=== PATIENT | male | born 1980 | race Caucasian/White ===

== ENCOUNTER 2020-01-27 08:01 | Emergency (ER) | payer OTHER, SELFPAY ==
--- NOTE | 2020-01-27 08:08 | ED.GENADULT ---
HPI - General Adult General Chief complaint: Extremity Problem,Nontraumatic Stated complaint: left hip pain Time Seen by Provider: 01/27/20 08:16 Source: patient Mode of arrival: ambulatory Limitations: no limitations History of Present Illness HPI narrative: 39-year-old male [facility] complaints of left hip pain for the past 3 days. 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 Patient states he is really had increasing pain over the last 3 days to the point where it hurts to walk. Patient states there is a certain point that he can push right along the left hip/buttock area that is painful. Patient states he has been trying to take ibuprofen, 600 mg as well as 2 extra strength Tylenol for the pain. Patient denies any heating pads, ice past. Patient denies any numbness or tingling down the legs. Patient denies any injury that he is aware of. Patient denies any loss of bowel or bladder control. Related Data Allergies Allergy/AdvReac Type Severity Reaction Status Date / Time No Known Allergies Allergy Verified 01/27/20 08:16 Review of Systems Review of Systems: Narrative: CONSTITUTIONAL: Denies fever, chills, or sweats. EYES: Denies visual changes, redness, or discharge. ENT: Denies rhinorrhea, congestion, sore throat, or otalgia. CARDIOVASCULAR: Denies chest pain, palpitations, or edema. RESPIRATORY: Denies cough or dyspnea. GASTROINTESTINAL: Denies abdominal pain, nausea, vomiting, or diarrhea. GENITOURINARY: Denies dysuria or hematuria. SKIN: Denies rash or itching. MUSCULOSKELETAL: Denies back pain, joint pain, or myalgia. Positive left hip pain x3 days NEUROLOGIC: Denies headache, numbness, or weakness. PSYCHIATRIC: Denies anxiety or depression. [facility] Past Medical History Medical History Asthma Cyst epidermoid cyst on left side of neck 12/10/2016 Inguinal hernia left - 12/2014 Insomnia Surgical History Surgical History History of arthroplasty finger joint - 2012 History of removal of cyst off neck 12/24/2016 Family History Family History Other Asthma Social History Social History Smoking packs per day: 1 Smoking cigarettes per day: 20.0 Smoking status: Current every day smoker Tobacco type: cigarettes Second hand tobacco smoke exposure: No Alcohol intake: current Substance use: former Substance use type: marijuana Gender identity (if verbalized by the patient): Male Comments At the time of my signature I agree with nursing past medical history, surgical, social, and family history. There is no relevant family history pertinent to the presenting complaint. Exam Narrative: Exam Narrative: GENERAL: Well-appearing, well-nourished, and in no acute distress. HEAD: Normocephalic, atraumatic. EYES: PERRLA and EOMI. ENT: Nares clear, no rhinorrhea or epistaxis. Mucous membranes moist. NECK: Supple. No lymphadenopathy CHEST: Clear to auscultation. No respiratory distress. HEART: Regular rate and rhythm. No murmur heard. Normal peripheral pulses. ABDOMEN: Soft, nontender, nondistended, normal active bowel sounds. EXTREMITIES: Patient is able to ambulate to treatment area without difficulty patient does complain of pain and does have a slight limp when walking. No surface trauma, ecchymosis. no erythema, warmth. No deformity or crepitus or obvious asymmetry of the affected leg compared to the other. No tenderness to palpation over symphysis pubis, ischial bone,iliac crest, trochanter, SI notch, buttocks, quadriceps, femoral triangle, inguinal ligament. Patient does have pain on palpation right around the sciatic nerve area on the left buttocks over to the left hip. No
[2020-01-27 08:12] VITALS: BP 129/87; PULSE 97; RESP 16; TEMP 37; O2SAT 96
== END 2020-01-27 08:30 | disposition home or self-care (01) ==
PROVIDERS: Emergency Provider Nurse Practitioner Family
DX: M54.32 Sciatica, left side (principal); M25.552 Pain in left hip; J45.909 Unspecified asthma, uncomplicated; F17.210 Nicotine dependence, cigarettes, uncomplicated
CPT/HCPCS: 99213; G0463

== ENCOUNTER 2023-12-14 06:49 | Emergency (ER) | payer OTHER, SELFPAY ==
--- NOTE | ~2023-12-14 | XR_ITS ---
EXAMINATION: XR chest 1V portable DATE: 12/14/2023 07:57 INDICATION: Cough. TECHNIQUE: A single frontal view of the chest was obtained. COMPARISON: None. FINDINGS: A calcified right lung nodule is consistent with old granulomatous disease. No pleural effu chavo or pneumothorax. The heart size is normal. IMPRESSION: 1. No acute cardiopulmonary disease. Reviewed, dictated and finalized at location A.
[2023-12-14 06:54] VITALS: BP 160/106; PULSE 96; RESP 20; TEMP 36.9; O2SAT 92
[2023-12-14 06:58] VITALS: O2SAT 95
--- NOTE | 2023-12-14 07:20 | ED.GENADULT ---
HPI - General Adult General Chief complaint: Upper Respiratory Infection Stated complaint: URI x 2 months Time Seen by Provider: 12/14/23 06:55 History of Present Illness HPI narrative: [age] old male presenting to the emergency department for evaluation of cough and congestion. this been going on for approximately 1 month. Patient is a smoker but states he has not been smoking much as of recently. Upon arrival to the emergency department patient has stable vital signs. Patient does admit to daily alcohol consumption. Related Data Allergies Allergy/AdvReac Type Severity Reaction Status Date / Time No Known Allergies Allergy Verified 12/14/23 06:51 Review of Systems Review of Systems: All systems reviewed & are unremarkable except as noted in HPI and below Exam Narrative: APPEARANCE: Well appearing, no pain, no distress, well-nourished. HEAD: normocephalic, atraumatic. EYES: PERRLA/EOMI, conjunctivae clear. NOSE: Normal no drainage EARS:TMS clear with good light reflex. THROAT: Pharynx clear, no exudate. NECK: Supple. No adenopathy, no masses. RESPIRATORY: Wheeze bilaterally CARDIOVASCULAR: Regular rate and rhythm without murmurs rubs or gallops. ABDOMINAL: Soft, nontender, nondistended, normal bowel sounds MUSCULOSKELETAL: Moves all extremities. Strength/ROM intact, No edema, No calf tenderness. NEURO: Alert. Cranial nerves II through XII intact. Grossly intact SKIN: Warm, dry. Normal Color Course Vital Signs Vital signs: Vital Signs Temperature 98.4 F 12/14/23 06:54 Pulse Rate 96 12/14/23 06:54 Respiratory Rate 20 12/14/23 06:54 Blood Pressure 160/106 H 12/14/23 06:54 Pulse Oximetry 92 12/14/23 06:54 Oxygen Delivery Room Air 12/14/23 06:54 Temperature 98.4 F 12/14/23 06:54 Pulse Rate 76 12/14/23 07:45 Respiratory Rate 20 12/14/23 07:45 Blood Pressure 160/106 H 12/14/23 06:54 Pulse Oximetry 95 12/14/23 06:58 Oxygen Delivery Room Air 12/14/23 06:[address] [facility] Narrative Medical decision making narrative: [age] old male presenting emergency department for evaluation of cough wheezing and shortness of breath. Wheeze was resolved with an albuterol treatment. Patient is afebrile with no leukocytosis and a stable hemoglobin no acute abnormalities on the patient's CMP patient was negative for influenza RSV and for COVID. Due to the duration of the patient's illness he will be started on antibiotics, provided albuterol inhaler. Differential Diagnosis Differential Diagnosis: Pneumonia, COPD, influenza, RSV, COVID Vital Signs Vital Signs: Vital Signs Temperature 98.4 F 12/14/23 06:54 Pulse Rate 96 12/14/23 06:54 Respiratory Rate 20 12/14/23 06:54 Blood Pressure 160/106 H 12/14/23 06:54 Pulse Oximetry 92 12/14/23 06:54 Oxygen Delivery Room Air 12/14/23 06:54 Temperature 98.4 F 12/14/23 06:54 Pulse Rate 76 12/14/23 07:45 Respiratory Rate 20 12/14/23 07:45 Blood Pressure 160/106 H 12/14/23 06:54 Pulse Oximetry 95 12/14/23 06:58 Oxygen Delivery Room Air 12/14/23 06:58 Lab Data 12/14/23 07:23 12/14/23 07:24 Labs: Lab Results 12/14/23 12/14/23 12/14/23 Range/Units 07:23 07:24 07:37 WBC 7.8 (4.5-10.0) K/mm3 RBC 5.69 (4.6-6.20) M/mm3 Hgb 18.4 H (14.0-18.0) g/dL Hct 53.7 H (42.0-52.0) % MCV 94.4 (80-100) fl MCH 32.3 (26-34) pg MCHC 34.3 (32-36) g/dl RDW 13.0 (11.5-14.5) % Plt Count 196 (150-375) k/mm3 MPV 9.8 (7.4-10.4) fl Immature Gran % (Auto) 0.4 (0-0.5) % Neut % (Auto) 53.2 (45.5-73.1) % Lymph % (Auto) 26.5 (18.3-44.2) % Nye % (Auto) 7.3 (2.6-8.5) % Eos % (Auto) 10.9 H (0-4.4) % Baso % (Auto) 1.7 H (0.2-1.2) % Lymph # (Auto) 2.06 (0.9-3.2) K/mm3 Nye # (Auto) 0.6 (0.1-0.6) K/mm3 Eos # (Auto) 0.9 H (0-0.3) K/mm3 Baso # (Auto) 0.1 (0.0-0.1) K/mm3
[2023-12-14 07:31] LABS: Basophils Absolute Auto 0.1 K/mm3 (0.0-0.1); Basophils Percent Auto 1.7 % (0.2-1.2); Eosinophils Absolute Auto 0.9 K/mm3 (0-0.3); Eosinophils Percent Auto 10.9 % (0-4.4); Hematocrit 53.7 % (42.0-52.0); Hemoglobin 18.4 g/dL (14.0-18.0); Immature Granulocyte Absolute 0.03 K/mm3 (0.00-0.031); Immature Granulocyte Percent A 0.4 % (0-0.5); Lymphocytes Absolute Auto 2.06 K/mm3 (0.9-3.2); Lymphocytes Percent Auto 26.5 % (18.3-44.2); Mean Corpuscular HGB Conc 34.3 g/dl (32-36); Mean Corpuscular Hemoglobin 32.3 pg (26-34); Mean Corpuscular Volume 94.4 fl (80-100); Mean Platelet Volume 9.8 fl (7.4-10.4); Monocytes Absolute Auto 0.6 K/mm3 (0.1-0.6); Monocytes Percent Auto 7.3 % (2.6-8.5); Neutrophils Absolute Auto 4.1 K/mm3 (1.3-6.7); Neutrophils Percent Auto 53.2 % (45.5-73.1); Platelet Count Result 196 k/mm3 (150-375); Red Blood Count 5.69 M/mm3 (4.6-6.20); White Blood Count 7.8 K/mm3 (4.5-10.0)
[2023-12-14 07:35] VITALS: PULSE 88; RESP 20
[2023-12-14] MEDS: ALBUTEROL SULFATE NEB 2.5 MG/3 ML INH INHALATION (07:35)
[2023-12-14 07:40] LABS: Ethanol < 10 mg/dL (<10)
[2023-12-14 07:45] VITALS: PULSE 76; RESP 20
[2023-12-14 07:57] LABS: Alanine Aminotransferase 27 U/L (6-50); Albumin Level 4.7 g/dL (3.5-5.1); Alkaline Phosphatase 71 U/L (38-126); Anion Gap 6 mmol/L (4-12); Aspartate Amino Transferase 31 U/L (17-59); Bilirubin,Total 1.1 mg/dL (0.2-1.3); Blood Urea Nitrogen 16 mg/dL (9-20); Calcium 9.8 mg/dL (8.4-10.2); Carbon Dioxide 32 mmol/L (22-30); Chloride 101 mmol/L (98-107); Estimated CRCL calculation 127 ml/min; Estimated Glomerular Filt Rate > 60; Glucose 99 mg/dL (65-110); Sodium 139 mmol/L (137-145)
[2023-12-14 08:20] LABS: Influenza A QL RT-PCR Negative (Negative); Influenza B QL RT-PCR Negative (Negative); RSV RNA, RT-PCR Negative (Negative); SARS-CoV-2 RNA PCR Negative (Negative)
== END 2023-12-14 10:15 | disposition home or self-care (01) ==
PROVIDERS: Emergency Provider Emergency Medicine
DX: J18.9 Pneumonia, unspecified organism (principal); Z20.822 Contact with and (suspected) exposure to COVID-19; F17.210 Nicotine dependence, cigarettes, uncomplicated
CPT/HCPCS: 36415; 71045; 80053; 80307; 85025; 87637; 94640; 99283

== ENCOUNTER 2023-12-24 18:50 | Emergency (ER) | payer OTHER, SELFPAY ==
--- NOTE | ~2023-12-24 | XR_ITS ---
EXAMINATION: XR chest 2V DATE: 12/24/2023 20:25 INDICATION: Shortness of breath. Left chest pain. TECHNIQUE: Frontal and lateral views of the chest were obtained. COMPARISON: Chest single view 12/14/23 FINDINGS: A calcified right lung nodule is consistent with old granulomatous disease. There is no pne umonia, pleural effusion, or pneumothorax. The heart size is normal. IMPRESSION: 1. No acute cardiopulmonary disease. Reviewed, dictated and finalized at location E.
[2023-12-24 19:15] VITALS: BP 118/99; PULSE 97; RESP 20; TEMP 36.3; O2SAT 91
--- NOTE | 2023-12-24 19:48 | ECG_ITS ---
SEE SCANNED COPY FOR CONFIRMED REPORT MTDD
[2023-12-24 20:35] LABS: Basophils Absolute Auto 0.1 K/mm3 (0.0-0.1); Basophils Percent Auto 1.6 % (0.2-1.2); Eosinophils Absolute Auto 0.8 K/mm3 (0-0.3); Hematocrit 48.8 % (42.0-52.0); Hemoglobin 16.7 g/dL (14.0-18.0); Immature Granulocyte Absolute 0.02 K/mm3 (0.00-0.031); Immature Granulocyte Percent A 0.3 % (0-0.5); Lymphocytes Absolute Auto 2.16 K/mm3 (0.9-3.2); Lymphocytes Percent Auto 29.1 % (18.3-44.2); Mean Corpuscular HGB Conc 34.2 g/dl (32-36); Mean Corpuscular Hemoglobin 32.4 pg (26-34); Mean Corpuscular Volume 94.8 fl (80-100); Monocytes Absolute Auto 0.7 K/mm3 (0.1-0.6); Monocytes Percent Auto 9.3 % (2.6-8.5); Neutrophils Absolute Auto 3.6 K/mm3 (1.3-6.7); Neutrophils Percent Auto 48.7 % (45.5-73.1); Platelet Count Result 222 k/mm3 (150-375); Red Blood Count 5.15 M/mm3 (4.6-6.20); Red Cell Distribution Width 12.6 % (11.5-14.5); White Blood Count 7.4 K/mm3 (4.5-10.0)
[2023-12-24 20:47] LABS: Alanine Aminotransferase 25 U/L (6-50); Albumin Level 4.7 g/dL (3.5-5.1); Alkaline Phosphatase 79 U/L (38-126); Anion Gap 7 mmol/L (4-12); Aspartate Amino Transferase 25 U/L (17-59); Bilirubin,Total 0.6 mg/dL (0.2-1.3); Blood Urea Nitrogen 16 mg/dL (9-20); Calcium 9.4 mg/dL (8.4-10.2); Carbon Dioxide 29 mmol/L (22-30); Chloride 101 mmol/L (98-107); Estimated CRCL calculation 113 ml/min; Estimated Glomerular Filt Rate > 60; Glucose 130 mg/dL (65-110); Sodium 137 mmol/L (137-145)
[2023-12-24] MEDS: IPRATROPIUM BR 0.02% INH SOLN 0.5 MG/2.5 ML VIAL 1.5 MG INHALATION (20:50)
[2023-12-24] MEDS: KETOROLAC (*BKC) 60 MG/2 ML VIAL IM (20:50)
[2023-12-24] MEDS: ALBUTEROL SULFATE NEB 2.5 MG/3 ML INH 15 MG INHALATION (20:51)
--- NOTE | 2023-12-24 20:54 | ED.GENADULT ---
HPI - General Adult General Chief complaint: Upper Respiratory Infection Stated complaint: cold sx, left sided back pain, left arm numbness Time Seen by Provider: 12/24/23 20:32 History of Present Illness HPI narrative: Patient is a 43-year-old male who presents ER with cough for the last 5-6 weeks. He was seen in the ER on 12/14/2023. He has been on Augmentin and azithromycin. He has also been on prednisone. He has been using albuterol. Reports he continues to have cough and wheezing. Worsening morning associated with sinus congestion and postnasal drip. No recurrence of fevers or chills. He does report they started to have pain when he coughs along his chest wall. He has also been having some pain in left shoulder and get some tingling that goes down his arm into his little finger. No known injury. Has not tried any pain relieving medications. When reaching behind his back performing internal rotation he has stretching and increased comfort in that left shoulder. Related Data Allergies Allergy/AdvReac Type Severity Reaction Status Date / Time No Known Allergies Allergy Verified 12/14/23 06:51 Review of Systems Review of Systems: All systems reviewed & are unremarkable except as noted in HPI and below Constitutional: Constitutional: Reports no additional constitutional complaints ENT: Reports nasal congestion and Denies sore throat Cardiovascular: Cardiovascular: Reports no additional cardiovascular complaints Respiratory: Respiratory: Reports cough, Reports dyspnea and Reports wheezing Gastrointestinal: Gastrointestinal: Reports no additional gastrointestinal complaints Genitourinary: Genitourinary: Reports no additional male genitourinary complaints Musculoskeletal: Musculoskeletal: Reports arthralgias, Denies joint swelling and Denies muscle cramps Neurologic: Denies headache(s), Denies focal weakness and Reports numbness PMFSH Past Medical History Medical History (Updated 12/24/23 @ 22:14 by Neal Frias MD) Healthy adult male Surgical History Surgical History (Updated 12/24/23 @ 20:56 by Neal Frias MD) No pertinent past surgical history Exam Narrative: GENERAL: Well-appearing, well-nourished, and in no acute distress. HEAD: Normocephalic, atraumatic. ENT: Mucous membranes moist. NECK: Supple. CHEST: Diffuse expiratory wheezing. No respiratory distress. HEART: Regular rate and rhythm. Normal peripheral pulses. ABDOMEN: Soft, nontender, nondistended. EXTREMITIES: Normal range of motion. No edema. No tenderness to left shoulder with palpation. SKIN: Warm, dry, no rash. NEURO: Alert and oriented x3. PSYCH: Normal mood and affect. Course Course Emergency Course: Patient still with some wheezing. No pneumonia. Labs reassuring. He reports he used to have chronic bronchitis and used to be on Advair. Will restart Advair and also put on a a steroid taper. Recommend he establish care with PCP and may require pulmonary consult some point. Tingling in arms improved with Toradol. Vital Signs Vital signs: Vital Signs Temperature 97.3 F L 12/24/23 19:15 Pulse Rate 97 12/24/23 19:15 Respiratory Rate 20 12/24/23 19:15 Blood Pressure 118/99 H 12/24/23 19:15 Pulse Oximetry 91 12/24/23 19:15 Temperature 97.3 F L 12/24/23 19:15 Pulse Rate 97 12/24/23 19:15 Respiratory Rate 20 12/24/23 19:15 Blood Pressure 118/99 H 12/24/23 19:15 Pulse Oximetry 91 12/24/23 19:15 Medical Decision Making Vital Signs Vital Signs: Vital Signs Temperature 97.3 F L 12/24/23 19:15 Pulse Rate 97 12/24/23 19:15 Respiratory Rate 20 12/24/23 19:15 Blood Pressure 118/99 H 12/24/23 19:15 Pulse Oximetry 91 12/24/23 19:15 Temperature 97.3 F L 12/24/23 19:15 Pulse Rate 97 12/24/23 19:15 Respiratory Rate 20 12/24/23 19:15 Blood Pressure 118/99 H 12/24/23 19:15 Pulse Oximetry 91 12/24/23 19:15 Lab Data 12/24/23 20:14
[2023-12-24 22:12] VITALS: BP 132/76; PULSE 71; RESP 24; O2SAT 99
== END 2023-12-24 22:23 | disposition home or self-care (01) ==
PROVIDERS: Physician Assistant; Emergency Provider Emergency Medicine
DX: J40 Bronchitis, not specified as acute or chronic (principal); M54.10 Radiculopathy, site unspecified; R94.31 Abnormal electrocardiogram [ECG] [EKG]
CPT/HCPCS: 36415; 71046; 80053; 85025; 93005; 96372; 99284; J1885

== ENCOUNTER 2024-01-30 03:49 | Emergency (ER) | payer OTHER, SELFPAY ==
--- NOTE | ~2024-01-30 | XR_ITS ---
EXAMINATION: XR chest 1V portable DATE: 01/30/2024 04:24 INDICATION: Cough. Shortness of breath. TECHNIQUE: A single frontal view of the chest was obtained on 2 radiographs. COMPARISON: Chest 2 views 12/24/2023 FINDINGS: A calcified right lung nodule is consistent with old granulomatous disease. No pleural effu chavo or pneumothorax. The heart size is normal. IMPRESSION: 1. No acute cardiopulmonary disease. Reviewed, dictated and finalized at location A.
[2024-01-30 03:55] VITALS: BP 139/92; PULSE 84; RESP 22; TEMP 36.3; O2SAT 85
[2024-01-30 03:59] VITALS: O2SAT 88; O2SAT 94; O2SAT 95
[2024-01-30 04:01] VITALS: O2SAT 93
--- NOTE | 2024-01-30 04:04 | ED.SOB ---
HPI - SOB/Dyspnea General Chief Complaint: Shortness of Breath/Dyspnea Stated Complaint: SOB Time Seen by Provider: 01/30/24 03:56 History of Present Illness HPI Narrative: Patient presents with difficulty breathing, especially when he walks around, he has had 3 episodes like this in the last few months, has not followed up with any doctor and is supposed to be on Advair which he had taken for many years but he stopped seeing a doctor, stopped getting his prescriptions, and moved in with his father into his disgusting house and since then has been having these episodes non-stop. He has history of asthma and was diagnosed with COPD and still smokes a pack a day. Related Data Allergies Allergy/AdvReac Type Severity Reaction Status Date / Time No Known Allergies Allergy Verified 12/14/23 06:51 Review of Systems Review of Systems: All systems reviewed & are unremarkable except as noted in HPI and below PMFSH Past Medical History Medical History (Updated 01/30/24 @ 05:36 by Gisele Monroy MD) Healthy adult male Surgical History Surgical History (Updated 12/24/23 @ 20:56 by Neal Frias MD) No pertinent past surgical history Exam Narrative: EXAMINATION OF ORGAN SYSTEMS/BODY AREAS: Constitutional: Vital signs per nursing GENERAL:[No acute distress, non-toxic appearing.] HEAD: Normal with no signs of head trauma. EYES: EOMI, conjunctiva normal ENT: Hearing grossly intact LUNGS: Nonlabored breathing. Diminished breath sounds and wheezing everywhere HEART: [Regular rate and rhythm] ABD: [Soft], [nontender to palpation] EXT: Normal range of motion SKIN: [No rashes or lesions.] NEURO: [Alert and oriented x 3. No gross focal sensory or strength deficits.] PSYCH: Normal affect Course Vital Signs Vital signs: Vital Signs Temperature 97.4 F L 01/30/24 03:55 Pulse Rate 84 01/30/24 03:55 Respiratory Rate 22 H 01/30/24 03:55 Blood Pressure 139/92 H 01/30/24 03:55 Pulse Oximetry 85 L 01/30/24 03:55 Oxygen Delivery Room Air 01/30/24 03:55 Temperature 97.4 F L 01/30/24 03:55 Pulse Rate 84 01/30/24 03:55 Respiratory Rate 22 H 01/30/24 03:55 Blood Pressure 139/92 H 01/30/24 03:55 Pulse Oximetry 93 01/30/24 04:01 Oxygen Delivery Nasal Cannula 01/30/24 04:01 Oxygen Flow Rate 4 01/30/24 04:01 MDM - SOB/Dyspnea MDM Narrative Medical decision making narrative: ED COURSE AND MEDICAL DECISION MAKIN-year-old male with acute dyspnea and wheezing likely due to acute COPD/asthma exacerbation based on history and exam; he has also stop taking maintenance medications including Advair, which he had only been getting when he comes to the ER because he has not followed up with a doctor.. Patient is hypoxic with 85% on room air requiring 4 L of oxygen. Nebulizer treatments are started and steroids given orally. EKG on my independent interpretation shows normal sinus rhythm rate 84, W[place] interval 153, QRS 93, QTC 410. No ST elevations or depressions or signs concerning for acute ischemia. Patient monitored in the ED for a couple of hours and on reevaluation is feeling significantly better. No respiratory distress or accessory muscle use. Good air movement bilateral lungs. He is requesting discharge. Repeat oxygen is now 95% on room air. Prescriptions for [albuterol and steroid course] provided. He is counseled to stop smoking cigarettes. I will refill all of his medications and given him follow-up to alone [facility]. Importance of this is stressed. He is given strict return precautions and patient is discharged in stable/improved condition. Lab Data 01/30/24 04:06 01/30/24 04:06 Labs: Lab Results 01/30/24 01/30/24 Range/Units 04:06 04:07 WBC 7.7 (4.5-10.0) K/mm3 RBC 5.47 (4.6-6.20) M/mm3 Hgb 17.7 (14.0-18.0) g/dL Hct 52.2 H (42.0-52.0) % MCV 95.4 (80-100) fl MCH 32.4 (26-34) pg MCHC 33.9 (32-36) g/dl RDW
[2024-01-30] MEDS: predniSONE 20 MG TABLET 40 MG PO (04:05)
[2024-01-30] MEDS: ALBUTEROL SULFATE NEB 2.5 MG/3 ML INH 15 MG INHALATION (04:13)
[2024-01-30] MEDS: IPRATROPIUM BR 0.02% INH SOLN 0.5 MG/2.5 ML VIAL 1 MG INHALATION (04:14)
[2024-01-30 04:36] VITALS: PULSE 64; RESP 21; O2SAT 100
[2024-01-30 04:45] VITALS: PULSE 73; RESP 17; O2SAT 100
[2024-01-30 04:51] LABS: Influenza A QL RT-PCR Negative (Negative); Influenza B QL RT-PCR Negative (Negative); RSV RNA, RT-PCR Negative (Negative); SARS-CoV-2 RNA PCR Negative (Negative)
[2024-01-30 04:51] LABS: Basophils Absolute Auto 0.1 K/mm3 (0.0-0.1); Basophils Percent Auto 1.3 % (0.2-1.2); Eosinophils Absolute Auto 0.5 K/mm3 (0-0.3); Eosinophils Percent Auto 6.4 % (0-4.4); Hematocrit 52.2 % (42.0-52.0); Hemoglobin 17.7 g/dL (14.0-18.0); Immature Granulocyte Absolute 0.03 K/mm3 (0.00-0.031); Immature Granulocyte Percent A 0.4 % (0-0.5); Lymphocytes Absolute Auto 2.32 K/mm3 (0.9-3.2); Lymphocytes Percent Auto 30.2 % (18.3-44.2); Mean Corpuscular HGB Conc 33.9 g/dl (32-36); Mean Corpuscular Hemoglobin 32.4 pg (26-34); Mean Corpuscular Volume 95.4 fl (80-100); Mean Platelet Volume 10.4 fl (7.4-10.4); Monocytes Absolute Auto 0.8 K/mm3 (0.1-0.6); Neutrophils Percent Auto 51.7 % (45.5-73.1); Platelet Count Result 219 k/mm3 (150-375); Red Blood Count 5.47 M/mm3 (4.6-6.20); Red Cell Distribution Width 13.5 % (11.5-14.5); White Blood Count 7.7 K/mm3 (4.5-10.0)
[2024-01-30 04:58] LABS: Anion Gap 8 mmol/L (4-12); Blood Urea Nitrogen 12 mg/dL (9-20); Calcium 9.6 mg/dL (8.4-10.2); Carbon Dioxide 33 mmol/L (22-30); Chloride 99 mmol/L (98-107); Estimated CRCL calculation 101 ml/min; Estimated Glomerular Filt Rate > 60; Glucose 98 mg/dL (65-110); Potassium 3.5 mmol/L (3.4-5.0); Sodium 140 mmol/L (137-145)
[2024-01-30 05:53] VITALS: BP 138/72; PULSE 70; RESP 16; O2SAT 95
--- NOTE | 2024-01-30 09:56 | ECG_ITS ---
SEE SCANNED COPY FOR CONFIRMED REPORT MTDD
== END 2024-01-30 05:54 | disposition home or self-care (01) ==
PROVIDERS: Emergency Provider Emergency Medicine
DX: J42 Unspecified chronic bronchitis (principal); Z20.822 Contact with and (suspected) exposure to COVID-19
CPT/HCPCS: 36415; 71045; 80048; 85025; 87637; 93005; 99283; J7512

== ENCOUNTER 2024-02-29 06:13 | Emergency (ER) | payer OTHER, SELFPAY ==
[2024-02-29] VITALS (29 sets, daily range): BP systolic 140–153; BP diastolic 98–105; PULSE 74–101; RESP 17–28; TEMP 36.5; O2SAT 85–99
--- NOTE | ~2024-02-29 | XR_ITS ---
Portable chest x-ray Comparison: 01/30/2024 Clinical History: Shortness of breath Findings: Stable calcified right upper lobe granuloma. No acute pulmonary abnormality seen. Cardiom ediastinal silhouette is stable. Bones and soft tissues are unremarkable. Impression: No acute abnormality. Reviewed, dictated and finalized at [facility]. Impression: No acute abnormality.
--- NOTE | 2024-02-29 06:21 | ECG_ITS ---
Test Date: 2024-02-29 06:22:06 Measurements Intervals [place] Rate: 87 P: 67 MD: 145 QRS: 84 QRSD: 93 T: 61 QT: 368 QTc: 445 Interpretive Statements REDUCED ECG QUALITY BECAUSE OF BASELINE ARTIFACT SINUS RHYTHM GROSSLY NORMAL ECG No previous ECG available for comparison Electronically Signed On 02-29-2024 07:30:26 CDT by Osvaldo Gutierrez M.D.
[2024-02-29] MEDS: IPRATROPIUM 0.5 MG/ALBUTEROL SULFATE 2.5 MG AMPUL.NEB 3 ML 12 ML INHALATION (06:28)
[2024-02-29 06:36] LABS: Basophils Absolute Auto 0.1 K/mm3 (0.0-0.1); Basophils Percent Auto 1.1 % (0.2-1.2); Eosinophils Absolute Auto 0.6 K/mm3 (0-0.3); Eosinophils Percent Auto 7.7 % (0-4.4); Hematocrit 48.4 % (42.0-52.0); Hemoglobin 16.6 g/dL (14.0-18.0); Immature Granulocyte Absolute 0.03 K/mm3 (0.00-0.031); Immature Granulocyte Percent A 0.4 % (0-0.5); Lymphocytes Percent Auto 26.8 % (18.3-44.2); Mean Corpuscular HGB Conc 34.3 g/dl (32-36); Mean Corpuscular Volume 96.2 fl (80-100); Mean Platelet Volume 9.9 fl (7.4-10.4); Monocytes Absolute Auto 0.7 K/mm3 (0.1-0.6); Monocytes Percent Auto 7.9 % (2.6-8.5); Neutrophils Absolute Auto 4.6 K/mm3 (1.3-6.7); Neutrophils Percent Auto 56.1 % (45.5-73.1); Platelet Count Result 193 k/mm3 (150-375); Red Blood Count 5.03 M/mm3 (4.6-6.20); Red Cell Distribution Width 13.3 % (11.5-14.5); White Blood Count 8.2 K/mm3 (4.5-10.0)
[2024-02-29 06:42] LABS: Alanine Aminotransferase 13 U/L (6-50); Albumin Level 4.6 g/dL (3.5-5.1); Alkaline Phosphatase 67 U/L (38-126); Anion Gap 7 mmol/L (4-12); Aspartate Amino Transferase 24 U/L (17-59); Bilirubin,Total 0.7 mg/dL (0.2-1.3); Blood Urea Nitrogen 14 mg/dL (9-20); Carbon Dioxide 28 mmol/L (22-30); Chloride 103 mmol/L (98-107); Estimated CRCL calculation 127 ml/min; Estimated Glomerular Filt Rate > 60; Glucose 90 mg/dL (65-110); Sodium 138 mmol/L (137-145)
--- NOTE | 2024-02-29 07:17 | ED.SOB ---
HPI - SOB/Dyspnea General Chief Complaint: Shortness of Breath/Dyspnea Stated Complaint: SOB Time Seen by Provider: 02/29/24 06:52 History of Present Illness HPI Narrative: 43-year-old male with history of COPD presenting to the emergency department for evaluation of worsening shortness of breath. Patient states he is still smoker but ran out of his medications a few days ago, has had worsening shortness of breath and had patient has not smoking since being out of meds. Patient is not on oxygen at home. Patient denies any chest pain but does have shortness breath. Related Data Allergies Allergy/AdvReac Type Severity Reaction Status Date / Time No Known Allergies Allergy Verified 02/04/24 12:50 Review of Systems Review of Systems: All systems reviewed & are unremarkable except as noted in HPI and below PMFSH Past Medical History Medical History (Updated 02/29/24 @ 10:10 by Tayo Wyatt MD) Asthma Cyst epidermoid cyst on left side of neck 12/10/2016 Healthy adult male Inguinal hernia left - 12/2014 Insomnia Surgical History Surgical History (Updated 02/04/24 @ 12:50 by Mitesh Kapoor) History of arthroplasty finger joint - 2012 History of removal of cyst off neck 12/24/2016 No pertinent past surgical history Family History Family History (System 02/04/24 @ 12:50 by Mitesh Kapoor) Other Asthma Social History Social History (System 02/04/24 @ 12:50 by Mitesh Kapoor) Smoking packs per day: 1 Smoking cigarettes per day: 20.0 Smoking status: Current every day smoker Tobacco type: cigarettes Second hand tobacco smoke exposure: No Alcohol intake: current Alcohol use details: 1-3 beers consumed weekly Substance use: former Substance use type: does not use Gender identity (if verbalized by the patient): Male Exam Narrative: APPEARANCE: Well appearing, no pain, no distress, well-nourished. HEAD: normocephalic, atraumatic. EYES: PERRLA/EOMI, conjunctivae clear. NOSE: Normal no drainage EARS:TMS clear with good light reflex. THROAT: Pharynx clear, no exudate. NECK: Supple. No adenopathy, no masses. RESPIRATORY: Airway patent, respirations nonlabored. Clear to auscultation bilaterally, no rales, rhonchi, wheezing. CARDIOVASCULAR: Regular rate and rhythm without murmurs rubs or gallops. ABDOMINAL: Soft, nontender, nondistended, normal bowel sounds MUSCULOSKELETAL: Moves all extremities. Strength/ROM intact, No edema, No calf tenderness. NEURO: Alert. Cranial nerves II through XII intact. Grossly intact SKIN: Warm, dry. Normal Color Course Vital Signs Vital signs: Vital Signs Temperature 97.7 F 02/29/24 06:18 Pulse Rate 91 02/29/24 06:18 Respiratory Rate 24 H 02/29/24 06:18 Blood Pressure 148/100 H 02/29/24 06:18 Pulse Oximetry 90 02/29/24 06:18 Oxygen Delivery Room Air 02/29/24 06:18 Temperature 97.7 F 02/29/24 06:18 Pulse Rate 95 02/29/24 10:00 Respiratory Rate 22 H 02/29/24 10:00 Blood Pressure 141/98 H 02/29/24 08:31 Pulse Oximetry 95 02/29/24 10:00 Oxygen Delivery Nasal Cannula 02/29/24 08:45 Oxygen Flow Rate 4 02/29/24 08:45 MDM - SOB/Dyspnea MDM Narrative Medical decision making narrative: 43 old male presents to the emergency department for evaluation of worsening shortness of breath. Patient did have some expiratory wheeze on exam. Patient was treated with Solu-Medrol and nebulized albuterol and did feel improved with treatment. Patient is afebrile with no leukocytosis and a stable hemoglobin of 16.6. Patient has no acute abnormalities on his CMP chest x-ray showed no evidence of acute pneumonia. On re-evaluation patient does feel improved. Patient was started on prednisone for the next 5 days and also provided albuterol inhaler. Patient also had his Advair and albuterol nebulizer refill. Patient was encouraged to have follow-up with a primary care physician and was provided [place]. Differential Diagnosis Dif
[2024-02-29] MEDS: methylPREDNISolone SOD SUCC 125 MG VIAL IV PUSH (07:33)
== END 2024-02-29 10:20 | disposition home or self-care (01) ==
PROVIDERS: Emergency Medicine; Emergency Provider Emergency Medicine
DX: J44.1 Chronic obstructive pulmonary disease with (acute) exacerbation (principal); F17.210 Nicotine dependence, cigarettes, uncomplicated
CPT/HCPCS: 36415; 71045; 80053; 85025; 93005; 94640; 96374; 99284; J2919

== ENCOUNTER 2024-03-29 01:42 | Emergency (ER) | payer OTHER, SELFPAY ==
[2024-03-29] VITALS (13 sets, daily range): BP systolic 134–142; BP diastolic 81–99; PULSE 109–122; RESP 16–25; O2SAT 90–100
--- NOTE | ~2024-03-29 | XR_ITS ---
EXAMINATION: XR chest 1V portable DATE: 03/29/2024 02:22 INDICATION: Shortness of breath TECHNIQUE: frontal view of the chest was obtained. COMPARISON: Chest radiograph dated 02/29/2024 FINDINGS: Small calcified nodule in the right upper lung zone consistent with old granulomatous disease. No oth er airspace opacities, pulmonary edema, pleural effusion or pneumothorax. The cardiomediastinal silho uette is normal. IMPRESSION: 1. No acute cardiopulmonary disease. Reviewed, dictated and finalized at location A.
--- NOTE | 2024-03-29 01:43 | ECG_ITS ---
Test Date: 2024-03-29 01:51:34 Measurements Intervals [place] Rate: 120 P: 74 [place]: 159 QRS: 100 QRSD: 92 T: 69 QT: 416 QTc: 590 Interpretive Statements SINUS TACHYCARDIA BORDERLINE RIGHT AXIS DEVIATION [ INCOMPLETE RIGHT BUNDLE BRANCH BLOCK MINIMAL Q WAVES- ANTEROLATERAL LEADS POSSIBLE INFERIOR MYOCARDIAL INFARCTION , PROBABLY OLD BASELINE ARTIFACT- I, AVR, AVL, AVF, V1-V6 ABNORMAL ECG Compared to ECG 02/29/2024 06:22:06 HEART RATE HAS INCREASED Electronically Signed On 03-29-2024 07:16:30 CDT by Lars Cerda D.O.
[2024-03-29] MEDS: dexAMETHasone SOD PHOS INJ 10 MG/ML 1 ML VIAL IV PUSH (01:56)
[2024-03-29] MEDS: SODIUM CHLORIDE 0.9% IV 1,000 ML 999 ML IV CONT (01:56)
[2024-03-29 02:05] LABS: Basophils Absolute Auto 0.2 K/mm3 (0.0-0.1); Basophils Percent Auto 1.5 % (0.2-1.2); Eosinophils Absolute Auto 0.9 K/mm3 (0-0.3); Eosinophils Percent Auto 8.8 % (0-4.4); Hematocrit 52.5 % (42.0-52.0); Hemoglobin 18.5 g/dL (14.0-18.0); Immature Granulocyte Absolute 0.02 K/mm3 (0.00-0.031); Immature Granulocyte Percent A 0.2 % (0-0.5); Lymphocytes Absolute Auto 2.47 K/mm3 (0.9-3.2); Lymphocytes Percent Auto 23.6 % (18.3-44.2); Mean Corpuscular HGB Conc 35.2 g/dl (32-36); Mean Corpuscular Hemoglobin 33.5 pg (26-34); Mean Corpuscular Volume 95.1 fl (80-100); Mean Platelet Volume 10.3 fl (7.4-10.4); Monocytes Absolute Auto 0.8 K/mm3 (0.1-0.6); Monocytes Percent Auto 7.4 % (2.6-8.5); Neutrophils Absolute Auto 6.1 K/mm3 (1.3-6.7); Neutrophils Percent Auto 58.5 % (45.5-73.1); Platelet Count Result 225 k/mm3 (150-375); Red Blood Count 5.52 M/mm3 (4.6-6.20); Red Cell Distribution Width 13.4 % (11.5-14.5); White Blood Count 10.5 K/mm3 (4.5-10.0)
[2024-03-29] MEDS: IPRATROPIUM 0.5 MG/ALBUTEROL SULFATE 2.5 MG AMPUL.NEB 3 ML 12 ML INHALATION (02:06)
--- NOTE | 2024-03-29 02:12 | ED.GENADULT ---
HPI - General Adult General Chief complaint: Shortness of Breath/Dyspnea Stated complaint: sob Time Seen by Provider: 03/29/24 01:47 History of Present Illness HPI narrative: This is a 43-year-old male history of asthma/COPD presenting for difficulty breathing. Patient ran out of inhaler 1 week ago. Started having difficulty breathing 2 days ago that became acutely worse tonight. He is wheezing and this feels like previous asthma exacerbations. Patient denies fevers chills productive cough chest pain or lower extremity edema. Positive ETOH Related Data Allergies Allergy/AdvReac Type Severity Reaction Status Date / Time No Known Allergies Allergy Verified 02/04/24 12:50 [facility] Past Medical History Medical History Asthma Cyst epidermoid cyst on left side of neck 12/10/2016 Healthy adult male Inguinal hernia left - 12/2014 Insomnia Surgical History Surgical History History of arthroplasty finger joint - 2012 History of removal of cyst off neck 12/24/2016 No pertinent past surgical history Family History Family History Other Asthma Social History Social History Smoking packs per day: 1 Smoking cigarettes per day: 20.0 Smoking status: Current every day smoker Tobacco type: cigarettes Second hand tobacco smoke exposure: No Alcohol intake: current Alcohol use details: 1-3 beers consumed weekly Substance use: former Substance use type: does not use Gender identity (if verbalized by the patient): Male Exam Narrative: APPEARANCE: Patient cannot sit still, speaking quickly Head: atraumatic. EYES: EOMI, NOSE: Atraumatic NECK: Trachea midline RESPIRATORY: Expiratory wheezing in all palacios CARDIOVASCULAR: Tachycardic ABDOMINAL: Non-distended MUSCULOSKELETAl: No obvious deformities NEURO: Alert. Moving 4/4 extremities SKIN:: Warm, dry. Normal color PSYCHIATRIC: Normal affect Course Vital Signs Vital signs: Vital Signs Pulse Rate 120 H 03/29/24 01:44 Respiratory Rate 23 H 03/29/24 01:44 Blood Pressure 142/99 H 03/29/24 01:44 Pulse Oximetry 98 03/29/24 01:44 Oxygen Delivery Non-Rebreather Mask 03/29/24 01:44 Oxygen Flow Rate 15 03/29/24 01:44 Pulse Rate 122 H 03/29/24 02:49 Respiratory Rate 24 H 03/29/24 02:49 Blood Pressure 138/81 03/29/24 02:49 Pulse Oximetry 97 03/29/24 02:57 Oxygen Delivery Nasal Cannula 03/29/24 02:57 Oxygen Flow Rate 3 03/29/24 02:57 Medical Decision Making MDM Narrative Medical decision making narrative: -Course: 43-year-old male history of asthma presenting with difficulty breathing. Patient has been out of his inhalers for the last week. Treated for COPD with improvement in symptoms. Patient is still slightly tachycardic but positive for cocaine. Patient is requesting discharge. It was removed on a from oxygen saturation was 90%. I voiced my concerns about him not having oxygen at home the patient still wants to be discharged. Patient will be leaving against medical advice. Patient will be provided prescriptions for Advair and his nebulizer. -DDX includes but is not limited to: Asthma, pneumonia, pneumothorax -Co-morbidities complicating care: Asthma -Independent interpretation of studies: Labs reviewed. Chest x-ray without pneumonia. Hyperexpanded lungs. Independent EKG interpretation: Rhythm [sinus], Rate [120], [place] -[normal], [place] -[normal], QRS [narrow], QTC [normal], T waves -[negative for concerning inversions], ST Segments - [Negative for concerning elevations] Final interpretations: Sinus tachycardia Positive cocaine -Interventions: 1hr DuoNeb treatment, dexamethasone, 1 L normal saline -Shared decision making / Disposition: discharged. Vital Signs Vital Signs:
[2024-03-29 02:15] LABS: Ethanol < 10 mg/dL (<10)
[2024-03-29 02:16] LABS: Alanine Aminotransferase 16 U/L (6-50); Albumin Level 4.9 g/dL (3.5-5.1); Alkaline Phosphatase 73 U/L (38-126); Anion Gap 14 mmol/L (4-12); Aspartate Amino Transferase 26 U/L (17-59); Bilirubin,Total 1.1 mg/dL (0.2-1.3); Blood Urea Nitrogen 19 mg/dL (9-20); Calcium 9.3 mg/dL (8.4-10.2); Carbon Dioxide 28 mmol/L (22-30); Chloride 95 mmol/L (98-107); Estimated CRCL calculation 113 ml/min; Estimated Glomerular Filt Rate > 60; Glucose 126 mg/dL (65-110); Potassium 3.9 mmol/L (3.4-5.0); Sodium 137 mmol/L (137-145)
[2024-03-29 03:44] LABS: Amphetamine Screen Urine Negative (Negative); Barbiturate Screen Urine Negative (Negative); Benzodiazepines Screen Urine Negative (Negative); Cannabinoid Screen Urine Negative (Negative); Cocaine Screen Urine Positive (Negative); Methadone Screen Urine Negative (Negative); Opiate Screen Urine Negative (Negative); Phencyclidine Screen Urine Negative (Negative)
--- NOTE | 2024-03-29 03:50 | PC.NURSE ---
Pt satting 90% on RA. This RN attempted to put pt back on O2, pt refused. pt adamant on going home. EDP spoke w patient and AMA paperwork signed.
== END 2024-03-29 04:03 | disposition left against medical advice (07) ==
PROVIDERS: Emergency Provider Emergency Medicine
DX: J44.9 Chronic obstructive pulmonary disease, unspecified (principal); F14.10 Cocaine abuse, uncomplicated
CPT/HCPCS: 36415; 71045; 80053; 80307; 85025; 93005; 94640; 96361; 96374; 99284; J1100; J7030